=== PATIENT | male | born 1965 | race Caucasian/White ===

== ENCOUNTER 2021-09-02 09:59 | Emergency (ER) | payer OTHER ==
[2021-09-02 10:14] VITALS: BP 143/93; PULSE 80; TEMP 98.9; BMI 27.7
[2021-09-02] MEDS ORDERED: KETOROLAC TROMETHAMINE 30 MG/1 ML VIAL IM ONE (10:16)
[2021-09-02] MEDS ORDERED: ACETAMINOPHEN 325 MG TABLET (FP) PO ONE (10:16)
[2021-09-02] MEDS ORDERED: KETOROLAC TROMETHAMINE 30 MG/1 ML VIAL ONE (10:23)
[2021-09-02] MEDS ORDERED: ACETAMINOPHEN 500 MG TABLET (FP) ONE (10:23)
[2021-09-02] MEDS ORDERED: LIDOCAINE 5% TOPICAL PATCH TP ONE (10:40)
[2021-09-02] MEDS ORDERED: LIDOCAINE 5% TOPICAL PATCH ONE (10:56)
== END 2021-09-02 11:15 | disposition home or self-care (01) ==
LOC: FER 09:59
PROC: 3E0233Z Introduction of Anti-inflammatory into Muscle, Percutaneous Approach (ICD-10-PCS; principal; 2021-09-02)
DX: M54.50 Low back pain, unspecified (principal)
CPT/HCPCS: 81003; 99284-25